=== PATIENT | female | born 2005 | race Caucasian/White ===

== ENCOUNTER 2023-12-05 | Emergency (ER) | payer OTHER, SELFPAY ==
[2023-12-05 00:02] VITALS: BP 128/73; PULSE 76; RESP 16; TEMP 36.6; O2SAT 99
[2023-12-05 00:49] LABS: Appearance Urine Cloudy (Clear); Bacteria Urine 1+ /hpf; Bilirubin Urine 1+ (Negative); Color Urine Dark Yellow (Yellow); Glucose Urine UA Negative (Negative); Ketones Urine Negative (Negative); Leukocyte Esterase Ur 2+ LEU/UL (Negative); Nitrate Urine Negative (Negative); Non Pathogenic Casts 0-2; Protein Urine Negative (Negative); RBC Urine 0-2 /hpf (0-2); Specific Grav Ur 1.017 (1.001-1.035); Squamous Epithelial Cell Urine Few /hpf (Few); WBC Urine 51-100 /hpf; pH Urine 6.5 (5.0-9.0)
[2023-12-05 00:52] VITALS: BP 127/97; PULSE 80; RESP 16; TEMP 36.6; O2SAT 99
--- NOTE | 2023-12-05 00:57 | ED.GENADULT ---
HPI - General Adult General Chief complaint: Unspecified Stated complaint: fever, dark urine x 2 weeks, itchy Time Seen by Provider: 12/05/23 00:42 Source: patient Mode of arrival: ambulatory Limitations: no limitations History of Present Illness HPI narrative: This is a 18-year-old female who presents to the ED with multiple complaints. Reports that her urine has been darker in color over the last couple of weeks. She reports intermittent fevers and feeling very tired. Reports that she has had some abdominal bloating as well. Also reports that she has had diffuse itching intermittently. Denies any nausea, vomiting, diarrhea, flank pain, abdominal pain, rash, sore throat, cough Related Data Allergies Allergy/AdvReac Type Severity Reaction Status Date / Time No Known Allergies Allergy Verified 12/05/23 00:01 Review of Systems Review of Systems: All systems as dictated in HPI Exam Narrative: GENERAL: Well-appearing, well-nourished, and in no acute distress. HEAD: Normocephalic, atraumatic. EYES: PERRLA and EOMI. ENT: Nares clear, no rhinorrhea or epistaxis. Mucous membranes moist. Oropharynx without tonsillar hypertrophy exudate or other lesions. NECK: Supple. No adenopathy or masses. CHEST: No respiratory distress. Clear to auscultation. No wheezes rales or rhonchi HEART: Regular rate and rhythm. No murmur heard. Normal peripheral pulses. ABDOMEN: Negative flank tenderness bilaterally. soft, nontender, nondistended, normal active bowel sounds. MSK: Normal range of motion. No edema. SKIN: Warm, dry, no rash. NEURO: Alert and oriented x3. No focal deficits. PSYCH: Normal mood and affect. Course Vital Signs Vital signs: Vital Signs Temperature 98 F 12/05/23 00:02 Pulse Rate 76 12/05/23 00:02 Respiratory Rate 16 12/05/23 00:02 Blood Pressure 128/73 12/05/23 00:02 Pulse Oximetry 99 12/05/23 00:02 Oxygen Delivery Room Air 12/05/23 00:02 Temperature 98 F 12/05/23 00:52 Pulse Rate 80 12/05/23 00:52 Respiratory Rate 16 12/05/23 00:52 Blood Pressure 127/97 H 12/05/23 00:52 Pulse Oximetry 99 12/05/23 00:52 Oxygen Delivery Room Air 12/05/23 00:02 Medical Decision Making MDM Narrative Medical decision making narrative: This is a 18-year-old female who presents to the ED with chief complaint of darker urine and general fatigue. Vitals are normal. Exam is grossly benign. No flank tenderness. Lab work shows no elevated white count on CBC. She is slightly anemic with hemoglobin at 10.6. Appears to be microcytic anemia, may be consistent with iron deficiency. CMP shows normal kidney function. AST, ALT, alk-phos are all slightly elevated. Bilirubin is normal and albumin is normal. Urinalysis shows evidence of acute UTI. Symptoms most consistent with UTI, 2+ leuks and 51-100 whites.. Explained that some of the fatigue may be due to this anemia which is likely chronic. Instructed her to follow up with PCP regarding elevated liver labs and that I do expect these to self resolve. Vital Signs Vital Signs: Vital Signs Temperature 98 F 12/05/23 00:02 Pulse Rate 76 12/05/23 00:02 Respiratory Rate 16 12/05/23 00:02 Blood Pressure 128/73 12/05/23 00:02 Pulse Oximetry 99 12/05/23 00:02 Oxygen Delivery Room Air 12/05/23 00:02 Temperature 98 F 12/05/23 00:52 Pulse Rate 80 12/05/23 00:52 Respiratory Rate 16 12/05/23 00:52 Blood Pressure 127/97 H 12/05/23 00:52 Pulse Oximetry 99 12/05/23 00:52 Oxygen Delivery Room Air 12/05/23 00:02 Lab Data 12/05/23 01:18 12/05/23 01:18 Labs: Lab Results 12/05/23 12/05/23 Range/Units 00:30 01:18 WBC Pending RBC Pending Hgb Pending Hct Pending MCV Pending MCH Pending MCHC Pending RDW Pending Plt Count Pending MPV Pending Immature Gran % (Auto) Pending Neut % (Auto) Pending Lymph % (Auto)
[2023-12-05 01:16] LABS: Add Urine Microscopic? YES
[2023-12-05 01:44] LABS: Basophils Absolute Auto 0.1 K/mm3 (0.0-0.1); Basophils Percent Auto 0.8 % (0.2-1.2); Eosinophils Percent Auto 0.3 % (0-4.4); Hematocrit 36.3 % (37.0-47.0); Hemoglobin 10.6 g/dL (12.0-15.0); Immature Granulocyte Absolute 0.03 K/mm3 (0.00-0.031); Immature Granulocyte Percent A 0.4 % (0-0.5); Lymphocytes Absolute Auto 5.55 K/mm3 (0.9-3.2); Lymphocytes Percent Auto 72.4 % (18.3-44.2); Mean Corpuscular HGB Conc 29.2 g/dl (32-36); Mean Corpuscular Hemoglobin 22.9 pg (26-34); Mean Corpuscular Volume 78.6 fl (80-100); Monocytes Absolute Auto 0.5 K/mm3 (0.1-0.6); Neutrophils Absolute Auto 1.5 K/mm3 (1.3-6.7); Neutrophils Percent Auto 19.1 % (45.5-73.1); Platelet Count Result 158 k/mm3 (150-375); Red Blood Count 4.62 M/mm3 (4.2-5.4); Red Cell Distribution Width 15.7 % (11.5-14.5); White Blood Count 7.7 K/mm3 (4.5-10.0)
[2023-12-05 02:02] LABS: Alanine Aminotransferase 64 U/L (6-35); Albumin Level 3.6 g/dL (3.5-5.1); Alkaline Phosphatase 172 U/L (38-126); Anion Gap 9 mmol/L (8-16); Aspartate Amino Transferase 63 U/L (14-36); Bilirubin,Total 1.1 mg/dL (0.2-1.3); Blood Urea Nitrogen 7 mg/dL (7-17); Calcium 9.3 mg/dL (8.4-10.2); Carbon Dioxide 26 mmol/L (22-30); Chloride 102 mmol/L (98-107); Estimated CRCL calculation 107 ml/min; Estimated Glomerular Filt Rate > 60; Glucose 106 mg/dL (65-110); Potassium 3.6 mmol/L (3.4-5.0); Sodium 137 mmol/L (137-145)
[2023-12-05] MEDS: CEPHALEXIN 500 MG CAPSULE PO (02:27)
[2023-12-05 02:55] VITALS: BP 109/75; PULSE 69; RESP 15; O2SAT 100
== END 2023-12-05 02:56 | disposition home or self-care (01) ==
PROVIDERS: Emergency Medicine; Emergency Provider Physician Assistant
DX: N39.0 Urinary tract infection, site not specified (principal)
CPT/HCPCS: 36415; 80053; 81001; 81025; 85025; 87086; 87088; 99283; A9270